=== PATIENT | male | born 1950 | race Caucasian/White ===

== ENCOUNTER 2020-10-26 20:59 | Inpatient (IN) | payer MEDICARE, OTHER ==
[~2020-10-26] VITALS: Ht 180.3 cm; Wt 83.1 kg
--- NOTE | 2020-10-26 21:10 | NUR ---
PATIENT [id number]. WITNESSED SYNCOPAL EPISODE. FELL ON HIS KNEES. DENIES HT. PATIENT A/O X 4, RR EVEN AND UNALOBRED, NO SOB NOTED. PATIENT CONNECTED TO PSYCHIATRY PHYSICIAN AND POX. WILL CONTINUE TO MONITOR.
[2020-10-26 21:59] LABS: BASOPHILS % (AUTO) 0.7 % (0.0-2.0); HEMATOCRIT 43 % (39-51); HEMOGLOBIN 14.6 g/dL (13.5-17.5); LYMPHOCYTES # (AUTO) 1.7 K/uL (0.8-4.8); LYMPHOCYTES % (AUTO) 27.7 % (20.0-44.0); MEAN CORPUSCULAR HGB CONC 34 g/dl (31.0-36.0); MEAN CORPUSCULAR VOLUME 92 fL (80-96); MONOCYTES # (AUTO) 0.5 K/uL (0.1-1.30); MONOCYTES % (AUTO) 8.4 % (2.0-12.0); NEUTROPHILS # (AUTO) 3.7 K/uL (1.8-8.9); NEUTROPHILS % (AUTO) 61.2 % (43.0-81.0); PLATELET COUNT (AUTO) 182 K/uL (150-450); RED BLOOD CELL COUNT(AUTO) 4.63 MIL/uL (4.5-6.0)
[2020-10-26 22:10] LABS: CALCIUM, SERUM 8.5 mg/dL (8.5-10.1); POTASSIUM 3.8 mmol/L (3.5-5.1)
[2020-10-26 22:16] LABS: ALBUMIN 4.1 g/dL (3.4-5.0); BILIRUBIN,DIRECT 0.1 mg/dL (0.0-0.2); BILIRUBIN,TOTAL 0.4 mg/dL (0.2-1.0); TOTAL PROTEIN, SERUM 7.2 g/dL (6.4-8.2)
--- NOTE | 2020-10-26 22:20 | NUR ---
PATIENT TAKEN TO CT
--- NOTE | 2020-10-26 22:26 | NUR ---
PATIENT RETURNED FROM CT
[2020-10-26] MEDS ORDERED: ENOXAPARIN SODIUM 80 MG/0.8 ML DISP.SYRIN SQ ONE (22:30)
[2020-10-26] MEDS ORDERED: ENOXAPARIN SODIUM 100 MG/ML DISP.SYRIN SQ ONE (22:32)
--- NOTE | 2020-10-26 22:37 | NUR ---
COVID SWAB COLLECTED AND SENT TO LAB
--- NOTE | 2020-10-26 23:29 | NUR ---
CALLED FLOOR FOR REPORT, NURSE WILL CALL BACK
--- NOTE | 2020-10-26 23:48 | NUR ---
[facility] medical group operations intern - Gena MATT paged via exchange
--- NOTE | 2020-10-26 23:51 | NUR ---
REPORT GIVEN TO CHARGE NURSE
[2020-10-27] MEDS ORDERED: ACETAMINOPHEN 325 MG TABLET PO PRN (00:30)
[2020-10-27] MEDS ORDERED: MAGNESIUM HYDROXIDE 30 ML UDC PO PRN (00:30)
[2020-10-27] MEDS ORDERED: ONDANSETRON HCL/PF 4 MG/2 ML VIAL IVP PRN (00:30)
[2020-10-27] MEDS ORDERED: MAG HYDROX/AL HYDROX/SIMETH 30 ML UDC PO PRN (00:30)
[2020-10-27] MEDS: ASPIRIN 81 MG TAB.CHEW PO SCH ×2 (00:57→08:13)
[2020-10-27 00:59] VITALS: BP 144/75
[2020-10-27] MEDS ORDERED: LISINOPRIL (10MG) 10 MG TABLET PO SCH ×2 (01:00→09:00)
[2020-10-27] MEDS ORDERED: ATORVASTATIN 40 MG TABLET PO SCH ×2 (01:00→09:00)
--- NOTE | 2020-10-27 01:08 | NUR ---
ONCOLOGY SOCIAL WORK: ADMISSION 70 y/o male A/O x4. Skin intact, no pressure injury. Stable on room air, denies sob. Oriented to room, unit, staff. Fall precaution maintained.
[2020-10-27] MEDS ORDERED: hydrALAZINE HCL 10 MG TABLET PO ONE (02:30)
--- NOTE | 2020-10-27 02:36 | NUR ---
SAP ADMINISTRATOR: HR 38 HR 38 in the Tele monitor. BP 166/105 Pulse 63 in Sarahi map, patient no c/o dizziness, denies chest pain. Notified PEDIATRIC OPHTHALMOLOGIST Gena, order placed.
--- NOTE | 2020-10-27 02:40 | NUR ---
RESP NOTED. INFORMED PT THAT HIS HOME CPAP MUST BE APPROVED BY BIOMED BEFORE HE CAN USE IT. PT REFUSED HOSPITAL CPAP MACHINE. PT CLAIMS HE CANNOT NOT TOLERATE ANY OF THE HOSPITAL FACE MASKS DUE TO CLAUSTROPHOBIA. CHARGE NURSE AWARE.
[2020-10-27 02:56] VITALS: BP 166/105
[2020-10-27 03:00] VITALS: BP 160/102
--- NOTE | 2020-10-27 03:00 | NUR ---
GRAIN WAFER MACHINE OPERATOR: HR FLUCTUATING HR 48 in the Tele monitor. BP 160/102 Pulse 73 in Sarahi map. Notified MEASURING MACHINE OPERATOR Gena, patient has Chronic Bradycardia per SHAKA Avery. Given Hydralazine PO, will reassess.
[2020-10-27 05:32] VITALS: BP 152/79
--- NOTE | 2020-10-27 06:27 | NUR ---
TEACHER DRAMATICS: END OF SHIFT REPORT Patient is A/O x4. Sinus Srinivas HR 54 in the Tele monitor. No syncopal episode during the shift. BP improved, now 152/79 after PO Hydralazine. Patient appears anxious, reports he gets anxious when he sees numbers high. Intermittent Bradycardia, patient no c/o of dizziness,denies chest pain. Plan for cardio consult. Will endorse to oncoming RN.
[2020-10-27] MEDS ORDERED: MULT-447 PO (07:41)
[2020-10-27] MEDS ORDERED: ASPI-1420 PO (07:41)
[2020-10-27] MEDS ORDERED: ATOR40TA PO (07:41)
[2020-10-27] MEDS ORDERED: LISI10TA29 PO (07:41)
--- NOTE | 2020-10-27 07:50 | NUR ---
MAPPING EDITOR OPENING NOTE RECEIVED PATIENT LYING IN BED, AWAKE. A/O X4. STABLE ON ROOM AIR - NO SOB OR DISTRESS NOTED. NO PAIN AT THIS TIME. ON TELE MONITOR - READS SINUS CARL IN THE 60S. PATIENT STATED HE IS ANXIOUS ABOUT GETTING A NEW TROPONIN LEVEL DRAWN. ENCOURAGED PATIENT TO NOT STRESS. IV ACCESS TO RIGHT AC #20 - S/L. PATIENT IS AMBULATORY. SAFETY MEASURES IN PLACE. CALL LIGHT WITHIN REACH. WILL CONTINUE TO MONITOR.
--- NOTE | 2020-10-27 08:51 | NUR ---
ADMINISTERED [address] CONTRERAS PUT IN A DUPLICATE ORDER.
[2020-10-27] MEDS ORDERED: ASPIRIN EC 81 MG TABLET.DR PO SCH (09:00)
[2020-10-27] MEDS ORDERED: IV NS 0.9% 1,000 ML IV PRN (09:00)
[2020-10-27 09:48] VITALS: BP 162/74
[2020-10-27 10:52] LABS: THYROID STIMULATING HORMONE 2.264 uIU/mL (0.358-3.74)
--- NOTE | 2020-10-27 12:05 | NUR ---
LEAD REFINERTOBACCO WRAPPING MACHINE TENDER NOTE PATIENT DISCHARGED VIA PRIVATE CAR @ 1200. PATIENT STABLE, A/O X4. ALL MEDICATIONS GIVEN. DR. CONTRERAS CLEARED TO FL. ALL EXITCARE AND EDUCATION GONE OVER WITH PATIENT AND AT THE BEDSIDE. PATIENT GIVEN ALL DISCHARGE PAPERWORK. IV REMOVED AND WRISTBAND REMOVED. PATIENT FULLY DRESSED AND ALL BELONGINGS WITH PATIENT. ESCORTED TO LOBBY BY MYSELF AND . MD AWARE AND CHARGE NURSE AWARE OF DISCHARGE.
== END 2020-10-27 12:00 | disposition home or self-care (01) | DRG 282 ==
LOC: ER 21:01 → TELE 23:19
PROVIDERS: ADMIT Nurse Practitioner Acute Care; ATTEND Hospitalist
DX: I21.4 Non-ST elevation (NSTEMI) myocardial infarction (principal); R55 Syncope and collapse; E78.5 Hyperlipidemia, unspecified; E03.9 Hypothyroidism, unspecified; Z95.5 Presence of coronary angioplasty implant and graft; I10 Essential (primary) hypertension; R00.1 Bradycardia, unspecified; G47.33 Obstructive sleep apnea (adult) (pediatric); Z20.822 Contact with and (suspected) exposure to COVID-19
CPT/HCPCS: 36415; 70450-TC; 71045-TC; 80048-TC; 80061-TC; 80076-TC; 83690-TC; 84439-TC; 84443-TC; 84484-TC; 85025-TC; 87081-TC; 93307-TC; A4217; C9803; G0378; J1650